=== PATIENT | female | born 1950 | race Caucasian/White ===

== ENCOUNTER 2017-11-28 09:43 | Inpatient (IN) | payer OTHER ==
[~2017-11-28] VITALS: Ht 152.4 cm; Wt 65.8 kg
[2017-11-28] MEDS ORDERED: COZAAR50 MG PO (10:20)
[2017-11-28] MEDS ORDERED: ATENOLOL50 MG PO (10:21)
[2017-12-05] MEDS ORDERED: INTESTINEX680 M1 PO (15:19)
[2017-12-05] MEDS ORDERED: DICLOFENAC POTA50 MG PO (15:19)
[2017-12-05] MEDS ORDERED: AMOX-CLAV 500-1 EACH PO (15:20)
[2017-12-05] MEDS ORDERED: OMEPRAZOLE20 MG PO (15:20)
== END 2017-12-05 17:58 | disposition home or self-care (01) | DRG 338 ==
LOC: ER 09:43 → SEC-K 15:27 → SURH 20:06
PROVIDERS: Surgery
PROC: 0D9J40Z Drainage of Appendix with Drainage Device, Percutaneous Endoscopic Approach (ICD-10-PCS; 2017-11-28)
PROC: BW21ZZZ Computerized Tomography (CT Scan) of Abdomen and Pelvis (ICD-10-PCS; 2017-11-28)
PROC: 0DTJ4ZZ Resection of Appendix, Percutaneous Endoscopic Approach (ICD-10-PCS; principal; 2017-11-28 17:15)
PROC: BF37ZZZ Magnetic Resonance Imaging (MRI) of Pancreas (ICD-10-PCS; 2017-11-30)
PROC: BW40ZZZ Ultrasonography of Abdomen (ICD-10-PCS; 2017-11-30)
PROC: 3E0F7GC Introduction of Other Therapeutic Substance into Respiratory Tract, Via Natural or Artificial Opening (ICD-10-PCS; 2017-12-01)
PROC: 4A033R1 Measurement of Arterial Saturation, Peripheral, Percutaneous Approach (ICD-10-PCS; 2017-12-01)
PROC: B54DZZZ Ultrasonography of Bilateral Lower Extremity Veins (ICD-10-PCS; 2017-12-02)
PROC: BB24ZZZ Computerized Tomography (CT Scan) of Bilateral Lungs (ICD-10-PCS; 2017-12-03)
PROC: BW2GY0Z Computerized Tomography (CT Scan) of Pelvic Region using Other Contrast, Unenhanced and Enhanced (ICD-10-PCS; 2017-12-04)
DX: K35.3 Acute appendicitis with localized peritonitis (principal); I81 Portal vein thrombosis; J95.89 Other postprocedural complications and disorders of respiratory system, not elsewhere classified; R17 Unspecified jaundice; K91.89 Other postprocedural complications and disorders of digestive system; I10 Essential (primary) hypertension; R06.02 Shortness of breath; Z97.5 Presence of (intrauterine) contraceptive device

== ENCOUNTER 2018-01-06 10:29 | Emergency (ER) | payer OTHER ==
[~2018-01-06] VITALS: Ht 152.4 cm; Wt 62.6 kg
[~2018-01-06 10:29] MED LIST: AMOX-CLAV 500-1 EACH PO; ATENOLOL50 MG PO; COZAAR50 MG PO; DICLOFENAC POTA50 MG PO; INTESTINEX680 M1 PO; OMEPRAZOLE20 MG PO
== END 2018-01-06 16:10 | disposition home or self-care (01) ==
LOC: ER 10:29
DX: R42 Dizziness and giddiness (principal)

== ENCOUNTER 2018-05-11 06:23 | Day surgery (SDC) | payer OTHER | END 2018-05-11 11:40 | disposition home or self-care (01) | LOC: AMB-ENDOS 06:23 | DX: K57.30 Diverticulosis of large intestine without perforation or abscess without bleeding (principal); K64.0 First degree hemorrhoids ==

== ENCOUNTER 2020-11-10 12:34 | Outpatient (CLI) | payer OTHER | END 2020-11-10 12:35 | disposition home or self-care (01) | LOC: MAMO-SONO 12:34 | DX: R92.1 Mammographic calcification found on diagnostic imaging of breast (principal); Z12.31 Encounter for screening mammogram for malignant neoplasm of breast ==

== ENCOUNTER 2022-08-22 10:27 | Outpatient (CLI) | payer OTHER | END 2022-08-22 10:31 | disposition home or self-care (01) | LOC: MAMO-SONO 10:27 | PROVIDERS: ATTEND Specialist | DX: Z12.31 Encounter for screening mammogram for malignant neoplasm of breast (principal) ==